=== PATIENT | female | born 1970 | race Caucasian/White ===

== ENCOUNTER 2020-12-24 13:04 | Day surgery (SDC) | payer OTHER ==
[~2020-12-24] VITALS: Ht 167.6 cm; Wt 120.7 kg
[~2020-12-24 13:04] MED LIST: ACETAMINOPHEN500 M1 PO; ALLEGRA ALLERGY60 MG PO; AMITIZA8 MCG PO; AMLODIPINE BESYL5 MG PO; ARNUITY ELLIPT50 MCG; AUGMENTIN 875-1 EACH PO; BACLOFEN10 MG PO; CELEXA40 MG PO; CHLORTHALIDONE25 MG PO; CITALOPRAM HBR10 MG PO; CYMBALTA60 MG PO; DOXYCYCLINE HY100 MG PO; DULOXETINE HCL40 MG PO; GLUCOPHAGE500 MG PO; HYDROCHLOROTH12.5 M1 PO; HYDROCHLOROTH12.5 MG PO; INDOMETHACIN50 MG PO; METOPROLOL SUCC25 MG PO; MOBIC15 MG PO; NORCO 5-325 TA1 EACH PO; OXYCODONE HCL15 MG PO; PANTOPRAZOLE SO40 MG PO; PENICILLIN V P500 MG PO; PROTONIX40 MG PO; TIMOLOL MALEATE PO; TIMOLOL MALEATE10 MG PO; TRAZODONE HCL50 MG PO; ULTRAM50 MG PO; VITAMIN D350 MCG PO; WELLBUTRIN SR150 MG PO; ZOLOFT100 MG PO
--- NOTE | 2020-12-24 17:33 | NUR ---
12/24/20 1733 Aminta Knowles 1731-PATIENT ARRIVED TO PACU ON 2L NC AWAKE BUT DROWSY. DENIES PAIN OR NAUSEA. RR EVEN. ABDOMEN SOFT AND ROUND. IVF INFUSING. ENCOURAGED TO PASS GAS.
--- NOTE | 2020-12-26 17:33 | OR ---
[facility] [address] [place], [place] [address] Signed DATE OF OPERATION: 12/24/2020 SURGEON: El Brady MD PREOPERATIVE DIAGNOSES: 1. Colon surveillance, history of polyps. 2. Symptomatic persistent reflux disease. POSTOPERATIVE DIAGNOSES: 1. Hiatal hernia without obvious esophagitis. 2. Diverticular changes of sigmoid colon, left colon, and polyps x2 (left colon and rectum). PROCEDURES: 1. Esophagogastroduodenoscopy with biopsy. 2. Total colonoscopy to cecum with cold morcellation polypectomy x2. ANESTHESIA: Intravenous sedation fentanyl 200 mcg and Versed 12 mg total. INDICATION: This 50-year-old white woman is a patient of Dr. Dinora Biggs in [place], [place]. She is known to have "terrible heartburn" for which she was treated with pantoprazole with good clinical effect generally. She has no associated dysphagia recently, though she has had in the past. Upper endoscopy has been recommended to assess for Wills epithelium, disabling stricture, and so forth. Of additional concern is family history of esophageal carcinoma in her father. She has had no weight loss or hematemesis or significant distal dysphagia. As regards to colon she has undergone colonoscopy in the past and is said to have had polyps possibly. She has no family history of colon cancer. She understands the risks of bleeding, infection, and perforation related endoscopic evaluation wished to proceed. FINDINGS: Upper endoscopy showed hiatal hernia, but has impressively no sign of esophagitis proper, certainly no Wills epithelium. There was mild antral gastritis but not much and CLOtest was negative (so far). On colonoscopy, the prep was good and complete colonoscopy was undertaken of the cecum without question. She had numerous diverticula of the sigmoid and left colon. There were two very small polyps, one at about 60 cm and another of the rectum, both excised. Both were small and may or may not have been Electronically Signed By: EL BRADY MD 12/26/20 7270 PATIENT NAME: ANGUS CONTRERAS OPERATIVE REPORT DATE OF : 72 REPORT #: [id number] PHYSICIAN: EL BRADY MD PCP: DINORA BIGGS MD REPORT IS CONFIDENTIAL AND NOT TO BE RELEASED WITHOUT AUTHORIZATION [facility] [address] [place], [place] [address] Signed adenomatous, possibly they were hyperplastic, but they were not worrisome in appearance in any other way. DESCRIPTION OF PROCEDURE: The patient was brought to the endoscopy suite given topical lidocaine spray anesthesia and placed in lateral decubitus position. She was given intravenous sedation to the point of slurred speech and nystagmus with full cardiopulmonary monitoring. A bite block was placed. The Olympus video upper endoscope was passed in the hypopharynx. The vocal cords appeared normal. Scope was advanced to the esophagus. Esophagus was normal throughout its length, including the distal portion without sign of stricture, neoplasm, inflammation, Wills epithelium or varices. The scope was advanced to the stomach, which was insufflated with air. Rugal folds were normal. There was no sign of retained food or significant bile. The antrum was normal. Pylorus was normal. Scope was passed into the duodenum, which was normal. Biopsies were taken of the duodenum to assess for celiac disease. The scope was withdrawn. Biopsies taken of the antrum for both EDER and pathologic testing. Admittedly, there was some mild inflammation there, but certainly no ulceration. The scope was withdrawn. A retroflexed view undertaken showing a patulous GE junction with easy withdrawal of a flexed scope into the distal esophagus consistent with poor flap valve/hiatal hernia. The scope was straightened and withdrawn. Biopsies taken of the distal esophageal mucosa and ultimately the mid-esophagus as well. The scope was fully removed. The patient was then made ready for colonoscopy. Additional sedation was given and digital rectal examination performed. An Olympus video colonoscope was passed in the rectum and manipulated throughout the colon. Numerous diverticula were seen in the sigmoid and left colon. The scope was ultimately advanced to the cecum. The ileocecal valve and appendiceal orifice were normal. The scope was withdrawn from that point. Examination throughout showed no sign of abnormality until approximately 60 cm from the anal verge. The polyp that was seen was rather small and possibly adenomatous, but more likely hyperplastic actually. Cold morcellation polypectomy was undertaken. The scope was then withdrawn and diverticula were once again noted. In the rectosigmoid was a small, probably hyperplastic polyp. This was excised with cold morcellation technique as well. The scope was removed. The patient was taken to the recovery room in good condition. CONCLUDING DIAGNOSES: 1. Hiatal hernia without associated esophagitis. 2. Significant diverticular disease of sigmoid and left colon in two polyps, possibly hyperplastic. Electronically Signed By: EL BRADY MD 12/26/20 9103 PATIENT NAME: ANGUS CONTRERAS OPERATIVE REPORT DATE OF : 72 REPORT #: [id number] PHYSICIAN: EL BRADY MD PCP: DINORA BIGGS MD REPORT IS CONFIDENTIAL AND NOT TO BE RELEASED WITHOUT AUTHORIZATION [address] [address] Signed PLAN: 1. She will see us back in a month or so. We will review her pathology reports. I have recommended she maintain a high-fiber diet. She will continue on her PPI medication for the time being. The patient is endeavoring for weight loss and we have discussed a low carbohydrate based diet for that purpose. She has also been considering bariatric surgery. MD DEVONTE Jamison/ANASTASIIA /[id number] cc: Dr. Dinora Biggs [place], [place]. Copies: ~ Electronically Signed By: EL BRADY MD 12/26/20 1733 PATIENT NAME: ANGUS CONTRERAS OPERATIVE REPORT DATE OF : 72 REPORT #: [id number] PHYSICIAN: EL BRADY MD PCP: DINORA BIGGS MD REPORT IS CONFIDENTIAL AND NOT TO BE RELEASED WITHOUT AUTHORIZATION
--- NOTE | 2020-12-31 16:58 | PATH ---
[facility] [address] [place], [place] [address] Signed SPECIMEN(S): A DUODENAL BIOPSY SPECIMEN(S): B ANTRUM/PYLORUS BIOPSY SPECIMEN(S): C LOWER ESOPHAGEAL BIOPSY SPECIMEN(S): D MIDDLE ESOPHAGEAL BIOPSY SPECIMEN(S): E DESCENDING COLON POLYP AT 60 CM SPECIMEN(S): F RECTAL POLYP SPECIMEN SOURCE: A. DUODENAL BIOPSY B. ANTRUM/PYLORUS BIOPSY C. LOWER ESOPHAGEAL BIOPSY D. MIDDLE ESOPHAGEAL BIOPSY E. DESCENDING COLON POLYP AT 60 CM F. RECTAL POLYP CLINICAL HISTORY: Hx GERD dysphagia colon polyps. Dx: Hiatal hernia, polyps. MICROSCOPIC DESCRIPTION: Histologic sections of all submitted blocks are examined by light microscopy. These findings, together with the gross examination, support the pathologic diagnosis. FINAL PATHOLOGIC DIAGNOSIS: A. Duodenum, biopsy: - Duodenal mucosa with no histopathologic abnormality. - Negative for increased intraepithelial lymphocytes. - Negative for dysplasia or malignancy. B. Stomach, antrum/pylorus, biopsy: - Antral mucosa with mild reactive gastropathy and mild chronic, inactive gastritis. - Negative for Helicobacter organisms on HE stain. - Negative for dysplasia or malignancy. C. Esophagus, lower, biopsy: - Squamous mucosa with mild chronic inflammation and reactive epithelial changes, suggestive of reflux esophagitis. - Negative for intestinal metaplasia, dysplasia, or malignancy. D. Esophagus, middle, biopsy: - Squamous mucosa with no histopathologic abnormality. - Negative for increased intraepithelial eosinophils. - Negative for intestinal metaplasia, dysplasia, or malignancy. E. Colon, descending, polyp at 60 cm, polypectomy: PATIENT NAME: ANGUS RICHMOND PATHOLOGY DATE OF : 72 REPORT #: [id number] PHYSICIAN: PHIL BOWERS PCP: DINORA BIGGS MD REPORT IS CONFIDENTIAL AND NOT TO BE RELEASED WITHOUT AUTHORIZATION [facility] [address] [place], [place] [address] Signed - Fragments of colonic mucosa with no histopathologic abnormality. - Negative for dysplasia or malignancy. F. Rectum, polyp, polypectomy: - Fragments of rectal mucosa with no histopathologic abnormality. - Negative for dysplasia or malignancy. COMMENT: Regarding specimens E and F: Multiple additional deeper levels were examined. NAL:cml:C2NR GROSS DESCRIPTION: Six specimens are received in six containers, labeled "Richmond." A. The specimen, labeled "Rich[place], duodenum," is received in formalin and consists of a single butler soft tissue fragment(s) that measure 0.5 cm in greatest dimension. The specimen is entirely submitted in cassette (A1). B. The specimen, labeled "Richmond, antrum pylorus," is received in formalin and consists of two butler soft tissue fragment(s) that measure 0.3 cm in greatest dimension. The specimen is entirely submitted in cassette (B1). C. The specimen, labeled "Richmond, lower esophagus," is received in formalin and consists of a single butler soft tissue fragment(s) that measure 0.3 cm in greatest dimension. The specimen is entirely submitted in cassette (C1). D. The specimen, labeled "Richmond, mid esophagus," is received in formalin and consists of two butler soft tissue fragment(s) that measure 0.2 cm in greatest dimension. The specimen is entirely submitted in cassette (D1). E. The specimen, labeled "Richmond, descending colon polyp at 60 cm," is received in formalin and consists of two butler soft tissue fragment(s) that measure 0.4 cm in greatest dimension. The specimen is entirely submitted in cassette (E1). F. The specimen, labeled "Rich[place], rectal polyp," is received in formalin and consists of two butler soft tissue fragment(s) that measure 0.2 cm in greatest dimension. The specimen is entirely submitted in cassette (F1). JW (under the direct supervision of a pathologist) The Gross Description was prepared using a voice recognition system. The report was reviewed for accuracy; however, sound-alike word errors, addition and/or deletions may occur. If there is any PATIENT NAME: ANGUS RICHMOND PATHOLOGY DATE OF : 72 REPORT #: [id number] PHYSICIAN: PHIL BOWERS PCP: DINORA BIGGS MD REPORT IS CONFIDENTIAL AND NOT TO BE RELEASED WITHOUT AUTHORIZATION [facility] [address] [place] [address] Signed question about this report, please contact Client Services. PERFORMING LABORATORY: The technical component was performed by [facility] [address] (Tube Cutter Operator: Karla Lees MD; CLIA# [id number]). [facility], [address] [address] (CLIA# [id number]). Diagnostician: Ally Greene MD Pathologist Electronically Signed 12/31/2020 Copies: ~ PATIENT NAME: ANGUS RICHMOND HARIS PATHOLOGY DATE OF : 72 REPORT #: [id number] PHYSICIAN: PHIL BOWERS PCP: DINORA BIGGS MD REPORT IS CONFIDENTIAL AND NOT TO BE RELEASED WITHOUT AUTHORIZATION
== END 2020-12-24 18:10 | disposition home or self-care (01) ==
LOC: OPS 13:04 → DS 13:13 → OPS 14:00 → DS 14:00 → OPS 18:10
PROVIDERS: ATTEND Surgery
PROC: 0DB28ZX Excision of Middle Esophagus, Via Natural or Artificial Opening Endoscopic, Diagnostic (ICD-10-PCS; 2020-12-24)
PROC: 0DB38ZX Excision of Lower Esophagus, Via Natural or Artificial Opening Endoscopic, Diagnostic (ICD-10-PCS; 2020-12-24)
PROC: 0DBM8ZX Excision of Descending Colon, Via Natural or Artificial Opening Endoscopic, Diagnostic (ICD-10-PCS; 2020-12-24)
PROC: 0DBP8ZX Excision of Rectum, Via Natural or Artificial Opening Endoscopic, Diagnostic (ICD-10-PCS; 2020-12-24)
PROC: 0DB98ZX Excision of Duodenum, Via Natural or Artificial Opening Endoscopic, Diagnostic (ICD-10-PCS; principal; 2020-12-24 14:00)
PROC: 0DB78ZX Excision of Stomach, Pylorus, Via Natural or Artificial Opening Endoscopic, Diagnostic (ICD-10-PCS; 2020-12-24 14:00)
DX: K21.00 Gastro-esophageal reflux disease with esophagitis, without bleeding (principal); K29.50 Unspecified chronic gastritis without bleeding; K44.9 Diaphragmatic hernia without obstruction or gangrene; K62.1 Rectal polyp; K63.5 Polyp of colon; K57.30 Diverticulosis of large intestine without perforation or abscess without bleeding; M19.90 Unspecified osteoarthritis, unspecified site; I10 Essential (primary) hypertension; E66.01 Morbid (severe) obesity due to excess calories; Z68.41 Body mass index [BMI] 40.0-44.9, adult; Z86.010 Personal history of colon polyps; Z80.0 Family history of malignant neoplasm of digestive organs; Z90.49 Acquired absence of other specified parts of digestive tract
CPT/HCPCS: 84703; 88305; 99153; G0500; J2250; J3010; J7121